=== PATIENT | female | born 1970 | race Asian ===

== ENCOUNTER 2022-02-02 11:57 | Day surgery (SDC) | payer MEDICAID ==
[~2022-02-02] VITALS: Ht 172.7 cm; Wt 68.5 kg
[2022-02-02] VITALS (14 sets, daily range): BP systolic 108–132; BP diastolic 44–91
[2022-02-02] MEDS ORDERED: METF-900 PO (14:40)
[2022-02-02] MEDS ORDERED: midazolam 1 mg/ML 2ml injection ONE (14:47)
[2022-02-02] MEDS ORDERED: fentaNYL/PF 50MCG/1 ML 2ML syringe ONE (14:47)
[2022-02-02] MEDS ORDERED: normal saline 1000ml 1,000 ML IV SCH (15:20)
[2022-02-02] MEDS ORDERED: HYDROcodone/acetaminophen 5mg/325mg tablet PO ONE (15:25)
--- NOTE | 2022-02-02 17:00 | NUR ---
Written and verbal DC instructions given to pt and mom, verbalize understanding. VSS.
--- NOTE | 2022-02-02 17:30 | NUR ---
Dr. Spaulding called to check in on pt. Updated him pt received pain medication, pain had changed from being localized to diffuse abdomen. Dr. Spaulding aware no orders received.
== END 2022-02-02 18:25 | disposition home or self-care (01) ==
LOC: SSTAY O 11:57
PROVIDERS: ATTEND Radiology Diagnostic Radiology
DX: K76.89 Other specified diseases of liver (principal); E11.9 Type 2 diabetes mellitus without complications; Z88.2 Allergy status to sulfonamides; Z79.899 Other long term (current) drug therapy; Z98.890 Other specified postprocedural states
CPT/HCPCS: 49405; 74150; 82948; 99152; 99153; C1729; J2250; J3010; J7030; Z7610; 10160; 36415; 76942; A4615

== ENCOUNTER 2022-02-07 15:23 | Emergency (ER) | payer MEDICAID ==
[~2022-02-07] VITALS: Ht 172.7 cm; Wt 67.7 kg
[~2022-02-07 15:23] MED LIST: METF-900 PO
[2022-02-07 15:58] LABS: BASOPHILS % (AUTO) 0.6 % (0-1); EOSINOPHILS # (AUTO) 0.1 X10'3 (0-0.9); EOSINOPHILS % (AUTO) 1.4 % (0-6); HEMATOCRIT 39.1 % (35.0-45.0); HEMOGLOBIN 13.3 g/dl (12.0-16.0); LYMPHOCYTES # (AUTO) 1.6 X10'3 (1.1-4.8); LYMPHOCYTES % (AUTO) 27.3 % (21-51); MEAN CORPUSCULAR HEMOGLOBIN 29.2 PG (27.0-31.0); MEAN CORPUSCULAR VOLUME 85.7 FL (78-98); MEAN PLATELET VOLUME 7.5 FL (7.4-10.4); MONOCYTES # (AUTO) 0.4 X10'3 (0-0.9); MONOCYTES % (AUTO) 7.3 % (2-12); NEUTROPHILS # (AUTO) 3.8 X10'3 (1.8-7.7); NEUTROPHILS % (AUTO) 63.4 % (42-75); PLATELET COUNT 371 X10'3 (140-440); RED BLOOD COUNT 4.56 X10'6 (4.20-5.60); RED CELL DISTRIBUTION WIDTH 12.9 % (11.5-14.5)
[2022-02-07 16:08] LABS: ALANINE AMINOTRANSFERASE 48 U/L (12-78); ALBUMIN 4.2 G/DL (3.4-5.0); ALBUMIN/GLOBULIN RATIO 1.1 (1.1-1.5); ALKALINE PHOSPHATASE 74 IU/L (46-116); ANION GAP 9 (8-16); ASPARTATE AMINO TRANSFERASE 25 U/L (10-37); BILIRUBIN,TOTAL 0.4 MG/DL (0.1-1.0); BLOOD UREA NITROGEN 9 MG/DL (7-18); BUN/CREATININE RATIO 11.7 (6.6-38.0); CHLORIDE 103 MMOL/L (99-107); CREATININE 0.77 MG/DL (0.40-0.90); GLUCOSE 105 MG/DL (70-104); LIPASE 118 U/L (73-393); SODIUM 141 MMOL/L (135-145); TOTAL CARBON DIOXIDE 28.8 MMOL/L (24-32); TOTAL PROTEIN 8.1 G/DL (6.4-8.2); eGFR 79 ML/MIN
--- NOTE | 2022-02-07 16:17 | NUR ---
Patient eating a donut while awaiting bed in [facility].
[2022-02-07] MEDS ORDERED: iohexol 300mg/ml 100ml inj. ONE (20:27)
[2022-02-07] MEDS ORDERED: ondansetron 4mg rapidly disintigrating tab PO ONE (20:30)
[2022-02-07 21:06] VITALS: BP 120/59
[2022-02-07] MEDS ORDERED: AMOX500C2 PO (21:21)
[2022-02-07] MEDS ORDERED: ONDA4TAB12 PO (22:00)
== END 2022-02-07 22:10 | disposition home or self-care (01) ==
LOC: ER 15:24
DX: G89.18 Other acute postprocedural pain (principal); Z88.2 Allergy status to sulfonamides
CPT/HCPCS: 36415; 74177; 80053; 83690; 85025; 93005; 99285; J3490; Q9967

== ENCOUNTER 2024-03-24 11:14 | Day surgery (SDC) | payer MEDICAID ==
[~2024-03-24] VITALS: Ht 172.7 cm; Wt 63.6 kg
[~2024-03-24 11:14] MED LIST changes: +ASCO-134 PO; +MAGN400C PO; +UBID10CA4 PO; +VITA-290 PO
[2024-03-24] MEDS ORDERED: METF-438 PO (11:31)
[2024-03-24] MEDS ORDERED: CYCL10TA25 PO (11:31)
[2024-03-24] MEDS ORDERED: FAMO20TA8 PO (11:31)
[2024-03-24] MEDS ORDERED: AZEL137S4 BOTHNARES (11:31)
[2024-03-24] MEDS ORDERED: FLUT16SP26 BOTHNARES (11:31)
[2024-03-24] MEDS ORDERED: DULO60CA65 PO (11:31)
[2024-03-24] MEDS ORDERED: TRAZ-251 PO (11:31)
[2024-03-24 11:40] VITALS: BP 137/60; PULSE 80; RESP 16
[2024-03-24] MEDS ORDERED: MIDAZolam 1 MG/ML 5ML VIAL ONE (11:42)
[2024-03-24] MEDS ORDERED: fentaNYL/PF 50MCG/1 ML 2ML syringe ONE (11:42)
[2024-03-24] MEDS ORDERED: simethicone 40mg/0.6ml oral drops 30ml ONE (11:45)
[2024-03-24] MEDS ORDERED: propofol inj 20 ML IV ONE (11:53)
[2024-03-24 12:10] VITALS: BP 112/73; PULSE 76; RESP 19; O2SAT 99
[2024-03-24 12:20] VITALS: BP 110/110; PULSE 72; RESP 18; O2SAT 100
[2024-03-24 12:30] VITALS: BP 115/74; PULSE 73; RESP 18; O2SAT 100
[2024-03-24 12:40] VITALS: BP 112/61; PULSE 75; RESP 18; O2SAT 98
== END 2024-03-24 12:50 | disposition home or self-care (01) ==
LOC: GI LAB 11:14
PROVIDERS: ATTEND Internal Medicine Gastroenterology
DX: Z12.11 Encounter for screening for malignant neoplasm of colon (principal); I10 Essential (primary) hypertension; E11.9 Type 2 diabetes mellitus without complications; J45.909 Unspecified asthma, uncomplicated
CPT/HCPCS: 45378; J2250; J2704; J3010; J7030; Z7512; A4620

== ENCOUNTER 2024-04-11 08:37 | Day surgery (SDC) | payer MEDICAID ==
[~2024-04-11] VITALS: Ht 172.7 cm; Wt 63.6 kg
[~2024-04-11 08:37] MED LIST changes: +AZEL137S4 BOTHNARES; +CYCL10TA25 PO; +DULO60CA65 PO; +FAMO20TA8 PO; +FLUT16SP26 BOTHNARES; +METF-438 PO; +TRAZ-251 PO
[2024-04-11 09:05] VITALS: BP 124/79; PULSE 73; RESP 15
[2024-04-11] MEDS ORDERED: simethicone 40mg/0.6ml oral drops 30ml ONE (09:54)
[2024-04-11 09:55] VITALS: BP 112/64; PULSE 78; RESP 17; O2SAT 98
[2024-04-11 10:05] VITALS: BP 119/70; PULSE 69; RESP 13; O2SAT 98
[2024-04-11 10:15] VITALS: BP 119/65; PULSE 66; RESP 11; O2SAT 98
[2024-04-11 10:25] VITALS: BP_SYST 117; BP_SYST 17; BP_DIAS 66; PULSE 72; RESP 17; O2SAT 97
== END 2024-04-11 10:34 | disposition home or self-care (01) ==
LOC: GI LAB 08:37
PROVIDERS: ATTEND Internal Medicine Gastroenterology
DX: Z12.11 Encounter for screening for malignant neoplasm of colon (principal); Z79.899 Other long term (current) drug therapy; Z88.2 Allergy status to sulfonamides
CPT/HCPCS: 45378; J7030; Z7512; A4618; A4620

== ENCOUNTER 2024-04-12 08:33 | Day surgery (SDC) | payer MEDICAID ==
[~2024-04-12] VITALS: Ht 172.7 cm; Wt 63.6 kg
[2024-04-12 08:58] VITALS: BP 120/57; PULSE 70; RESP 12
[2024-04-12] MEDS ORDERED: MIDAZolam 1 MG/ML 5ML VIAL ONE (09:57)
[2024-04-12] MEDS ORDERED: LIDOcaine 2% Viscous 15ml cup ONE (09:57)
[2024-04-12] MEDS ORDERED: fentaNYL/PF 50MCG/1 ML 2ML syringe ONE (09:57)
[2024-04-12] MEDS ORDERED: diphenhydrAMINE 50 mg/ml inj ONE (09:57)
[2024-04-12] MEDS ORDERED: simethicone 40mg/0.6ml oral drops 30ml ONE (10:07)
[2024-04-12 10:16] VITALS: BP 128/78; PULSE 71; RESP 13; O2SAT 99
[2024-04-12 10:26] VITALS: BP 129/82; PULSE 67; RESP 13; O2SAT 97
[2024-04-12 10:36] VITALS: BP 123/75; PULSE 62; RESP 14; O2SAT 97
[2024-04-12 10:45] VITALS: BP 121/80; PULSE 59; RESP 12; O2SAT 97
== END 2024-04-12 10:55 | disposition home or self-care (01) ==
LOC: GI LAB 08:33
PROVIDERS: ATTEND Internal Medicine Gastroenterology
DX: K30 Functional dyspepsia (principal); K29.70 Gastritis, unspecified, without bleeding
CPT/HCPCS: 43239; J1200; J2250; J3010; J7030; Z7512; 99152; A4620

== ENCOUNTER 2024-08-03 08:36 | Outpatient (CLI) | payer MEDICAID | END 2024-08-03 23:59 | disposition home or self-care (01) | LOC: US 08:36 | PROVIDERS: ATTEND Student in an Organized Health Care Education/Training Program | DX: K76.0 Fatty (change of) liver, not elsewhere classified (principal); K76.89 Other specified diseases of liver; K82.4 Cholesterolosis of gallbladder; R10.11 Right upper quadrant pain | CPT/HCPCS: 76700 ==

== ENCOUNTER → 2025-01-18 | Day surgery (SDC) | payer MEDICAID ==
[2025-01-15 10:28] LABS: BASOPHILS % (AUTO) 0.6 % (0-1); EOSINOPHILS # (AUTO) 0.1 X10'3 (0-0.9); EOSINOPHILS % (AUTO) 1.1 % (0-6); LYMPHOCYTES # (AUTO) 2.3 X10'3 (1.1-4.8); LYMPHOCYTES % (AUTO) 33.2 % (21-51); MEAN CORPUSCULAR HEMOGLOBIN 28.1 PG (27.0-31.0); MEAN CORPUSCULAR HGB CONC 32.9 g/dL (33.0-36.5); MEAN CORPUSCULAR VOLUME 85.3 FL (78-98); MEAN PLATELET VOLUME 7.7 FL (7.4-10.4); MONOCYTES # (AUTO) 0.5 X10'3 (0-0.9); MONOCYTES % (AUTO) 7.8 % (2-12); NEUTROPHILS # (AUTO) 3.9 X10'3 (1.8-7.7); NEUTROPHILS % (AUTO) 57.3 % (42-75); PRE OP HEMOGLOBIN 13.2 g/dL (12.0-16.0); PRE OP PLATELET COUNT 375 X10'3 (140-440); PRE OP WHITE BLOOD COUNT 6.9 10'3 (4.8-10.8); RED BLOOD COUNT 4.69 X10'6 (4.20-5.60); RED CELL DISTRIBUTION WIDTH 13.8 % (11.5-14.5)
--- NOTE | 2025-01-15 10:36 | ELECTROCARDIOGRAPH REPORT ---
[facility] Test Date: 2025-01-15 Test Time: 10:32:19 Pat Name: KRISTIAN ARNOLD Department: [facility]-PRE-OP Patient ID: [facility]-[id number] Room: Gender: F Rn Home Care: ALEXANDRO : 1970 Requested By: NANDINI RODRIGUEZ Order Number: [id number] Reading MD: Dr. Curt Reyes Measurements Intervals [place] Rate: 67 P: 69 HI: 151 QRS: 81 QRSD: 85 T: 80 QT: 377 QTc: 398 Interpretive Statements Sinus rhythm RSR' in V1 or V2, probably normal variant Electronically Signed On 01-16-2025 6:53:[address] Curt Reyes Please click the below link to view image of tracing.
[2025-01-15 10:56] LABS: ALBUMIN 4.5 G/DL (3.4-5.0); ALBUMIN/GLOBULIN RATIO 1.3 (1.1-1.5); ALKALINE PHOSPHATASE 83 IU/L (46-116); BLOOD UREA NITROGEN 13 MG/DL (7-18); BUN/CREATININE RATIO 15.7 (10.0-20.0); CALCIUM 9.5 MG/DL (8.5-10.1); CHLORIDE 101 MMOL/L (99-107); CREATININE 0.83 MG/DL (0.40-0.90); PRE OP ALT 27 U/L (30-65); PRE OP AST 17 U/L (10-37); PRE OP BILIRUB, TOTAL 0.7 MG/DL (0.0-1.0); PRE OP GLUCOSE 93 MG/DL (70-104); PRE OP POTASSIUM 3.5 MMOL/L (3.4-5.1); TOTAL CARBON DIOXIDE 33.2 MMOL/L (24-32); TOTAL PROTEIN 7.9 G/DL (6.4-8.2); eGFR 72 ML/MIN
[2025-01-15 11:14] LABS: PRE OP ANION GAP 8 (8-16); PRE OP SODIUM 142 MMOL/L (135-145)
[~2025-01-18] VITALS: Ht 172.7 cm; Wt 63.5 kg
[2025-01-18] VITALS (15 sets, daily range): BP systolic 112–138; BP diastolic 69–89; PULSE 68–92; RESP 14–20; TEMP 97.9; O2SAT 95–100
[~2025-01-18] MED LIST changes: -ASCO-134 PO; +ASCO100031 PO; +ATOR40TA72; -AZEL137S4 BOTHNARES; +BUPIVAcaine 2.5mg/ml inj 50ml vial (contains preservative) ONE; -CYCL10TA25 PO; -FAMO20TA8 PO; -FLUT16SP26 BOTHNARES; +L.AC1CAP6 PO; +LIDOcaine 1% 30ml preserv. free vial ONE; -MAGN400C PO; +MAGN400T29 PO; -METF-900 PO; +OMEP40CA21 PO; -TRAZ-251 PO; +VITA1TAB97 PO; +acetaminophen 1,000mg/100ml IV 0 ML IV ONE; +acetaminophen 1,000mg/100ml IV 100 ML IV ONE; +diphenhydrAMINE 50 mg/ml inj IV PRN; +diphenhydrAMINE 50 mg/ml inj ONE; +fentaNYL/PF 50MCG/1 ML 2ML syringe IV PRN; +fentaNYL/PF 50MCG/1 ML 2ML syringe ONE; +glycopyrrolate 0.2mg/ml inj ONE; +labetalol 20mg/4ml (5mg/ml) syringe IV PRN; +midazolam 1 mg/ML 2ml injection ONE; +morphine 2 MG/ML inj. syringe IV PRN; +neostigmine methylsulfate 1 MG/ML 10ml vial ONE; +ondansetron/PF 4mg/2ml inj IV PRN; +ondansetron/PF 4mg/2ml inj ONE; +oxyCODONE/APAP 5-325mg tablet PO PRN; +propofol inj 20 ML IV ONE; +ringers solution, lacted 1,000 ML IV SCH; +rocuronium 10mg/ml inj IV ONE; +sevoflurane 250ml liquid IH ONE
[2025-01-18] MEDS: ceFAZolin 2gm/dext,iso 50mL 50 ML IV ONE (05:30)
[2025-01-18] MEDS: famotidine 20mg tablet PO ONE (11:39)
[2025-01-18] MEDS: INDOCYANINE GREEN 25 MG/10 ML VIAL IV ONE (11:40)
[2025-01-18] MEDS: ringers solution, lacted 1,000 ML IV SCH (11:41)
[2025-01-18] MEDS: BUPIVAcaine/PF 2.5 mg/ml (0.25%) 30ml vial IJ ONE (12:56)
--- NOTE | 2025-01-18 13:38 | OPERATIVE REPORT ---
Operative Report Providers to CC CC: MARKO RODRIGUEZ MD ~ Date of Procedure: Jan 18, 2025 Pre-Operative Diagnosis: Biliary colic, gallbladder polyps Post-Operative Diagnosis SAME as PRE-Op Procedure Performed Robotic assisted, laparoscopic cholecystectomy Surgeon: Marko Rodriguez MD FACS Safety And Health Consultant None Anesthesiologist: Milan Lomeli Type of Anesthesia: General Findings: No significant cystic disease of the liver visible, amenable to biopsy Clear visualization of the cystic duct, common bile duct and cystic artery with critical view of safety identified and confirmed using fluorescent cholangiography Wound class II Complications None Prosthetics\Implants used: None Estimated Blood Loss: Minimal Specimen Removed: Gallbladder Description of Procedure: Patient was brought to the operating room and identified by the nursing staff and the attending physician. Patient was placed supine and general anesthesia was induced. A supraumbilical, midline incision was made, long enough to accommodate a 12 mm Cheema port. Cheema technique was used to gain entry into the abdomen. Stay sutures were placed in the Cheema port anchored to the fascia. Abdomen was insufflated without incident. Laparoscope was inserted and the abdomen surveyed. Secondary, 8.5 mm robotic trochars were placed in the l eft upper quadrant and right lateral abdomen. Robotic arm was docked to the patient. Robotic instruments were guided intra-abdominally under laparoscopic visualization. The anterior aspects of the right and left lobes of the liver were examined. There were no significant hepatic cysts visible. Left lobe of the liver was lifted and did not see an obvious hepatic cysts they are either. Gallbladder was readily identified. Some adhesions between the transverse mesocolon in the gallbladder were taken down freeing up the fundus. Fundus of the gallbladder was grasped and retracted over the dome of the liver. Infundibulum was retracted towards the right lower quadrant. Firefly technology was used to obtain a fluorescent cholangiogram and visualize the pertinent anatomy. Cystic duct was clearly visualized. Peritoneum overlying the triangle was incised with hook electrocautery. This allowed for circumferential dissection of the cystic duct and artery. Critical view of safety was obtained. Duct and artery were then clipped with hemo-lock clips and both structures divided. Gallbladder was retracted laterally and dissected out of the gallbladder fossa. Gallbladder was set aside and fluorescent cholangiogram of the gallbladder fossa was used to confirm no evidence of bile leak. Gallbladder was placed in a laparoscopic retrieval bag. Secondary trochars were removed and the abdomen allowed to deflate. Cheema port was removed with the specimen in its retrieval bag. Fascia at the umbilical port site was closed with 0 Vicryl sutures. Skin was closed with 4-0 Monocryl sutures in a subcuticular fashion. About 40 cc of local anesthetic was used during the case. Sterile dressings were applied. Patient was awakened and taken to the [facility] care unit in stable condition. Counts repoted as correct: Yes MARKO RODRIGUEZ MD Jan 18, 2025 13:38
[2025-01-18] MEDS: morphine 4 MG/ML inj SYRINge IV PRN (14:04)
--- NOTE | 2025-01-19 19:06 | PATHOLOGY REPORT ---
[facility] [address] [place] [address] SURGICAL PATHOLOGY REPORT CaseNumber: [id number] Surgeon:Marko Hernadez M.D. CLINICAL INFORMATION CLINICAL INFORMATION: Not provided. DIAGNOSIS DIAGNOSIS: GALLBLADDER; ROBOTIC-ASSISTED LAPARAOSCOPIC CHOL - MILD CHRONIC CHOLECYSTITIS. - POLYPOID CHOLESTEROLOSIS. MICROSCOPIC DESCRIPTION MICROSCOPIC DESCRIPTION: A single slide of the submitted gallbladder is reviewed. Present is mild chr onic cholecystitis. The lining gallbladder mucosa is intact without dysplastic features. It inva ginates into the underlying muscularis propria. The gallbladder wall is thickened due to an increased content of fibrous tissue. There are scattered lymphocytes throughout. There are no features of yuriy gnancy. Additionall present, is a benign mucosal papilloma. The polypoid structure centrally contains a few thin-walled vessels and numerous foamy macrophages. The epithelium is heaped up into a frond/leaf-lik e configuration. 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 (st) GROSS DESCRIPTION GROSS DESCRIPTION: Received in a container of formalin labeled with the patient's name, number, and " gallbladder" is an intact gallbladder which measures 7.5 cm long by 2.5 cm in diameter. The serosa is smooth and purple-singh. The surgical bed is unremarkable. Sectioning reveals a moderate amount of vis cous dark green bile but no stones. The specimen container is strained and no stones are found. The mucosa is red and granular. A discrete mass lesion is not identified. The wall of the gallbladder m easures up to 0.4 cm thick. Baseball Winder sections of the neck and wall of the gallbladder are submi tted as A1.The time at which the specimen was removed was 1310. The time at which the specimen was pl aced in formalin was 1312. (meb) Electronically signed by: Wendy Driscoll M.D. 01/19/2025 6:35:00 PM
== END | disposition home or self-care (01) ==
LOC: PAS 10:40
PROVIDERS: ATTEND Surgery
DX: K80.44 Calculus of bile duct with chronic cholecystitis without obstruction (principal); E11.9 Type 2 diabetes mellitus without complications; I10 Essential (primary) hypertension; G43.909 Migraine, unspecified, not intractable, without status migrainosus; Z98.890 Other specified postprocedural states; E78.5 Hyperlipidemia, unspecified; Z88.2 Allergy status to sulfonamides; Z91.013 Allergy to seafood; Z79.899 Other long term (current) drug therapy
CPT/HCPCS: 36415; 47563; 80053; 82948; 85025; 93005; J0131; J1100; J2003; J2250; J2270; J2405; J2704; J2710; J3010; J3490; J7030; J7120; S2900; Z7506; Z7508; Z7512; A4215; A4618; A7000

== ENCOUNTER 2025-06-27 14:07 | Outpatient (CLI) | payer MEDICAID ==
[~2025-06-27 14:07] MED LIST changes: -ASCO100031 PO; +ASCO10004 PO; -BUPIVAcaine 2.5mg/ml inj 50ml vial (contains preservative) ONE; -LIDOcaine 1% 30ml preserv. free vial ONE; -acetaminophen 1,000mg/100ml IV 0 ML IV ONE; -acetaminophen 1,000mg/100ml IV 100 ML IV ONE; -diphenhydrAMINE 50 mg/ml inj IV PRN; -diphenhydrAMINE 50 mg/ml inj ONE; -fentaNYL/PF 50MCG/1 ML 2ML syringe IV PRN; -fentaNYL/PF 50MCG/1 ML 2ML syringe ONE; -glycopyrrolate 0.2mg/ml inj ONE; -labetalol 20mg/4ml (5mg/ml) syringe IV PRN; -midazolam 1 mg/ML 2ml injection ONE; -morphine 2 MG/ML inj. syringe IV PRN; -neostigmine methylsulfate 1 MG/ML 10ml vial ONE; -ondansetron/PF 4mg/2ml inj IV PRN; -ondansetron/PF 4mg/2ml inj ONE; -oxyCODONE/APAP 5-325mg tablet PO PRN; -propofol inj 20 ML IV ONE; -ringers solution, lacted 1,000 ML IV SCH; -rocuronium 10mg/ml inj IV ONE; -sevoflurane 250ml liquid IH ONE
--- NOTE | 2025-06-27 14:31 | RADIOLOGY REPORT ---
EXAM: MR MRI C SPINE CLINICAL HISTORY: PAIN IN LEFT SHOULDER COMPARISON: None Technique: MRI of the cervical spine was performed without contrast. Findings: Vertebral body height is preserved. Mild retrolisthesis of C4 and C5 with reversal of cervical lordosis. Vertebral marrow signal is essentially normal. No spinal cord edema. C2-3: No significant spinal canal or foraminal stenosis. C3-4: No significant spinal canal or foraminal stenosis. C4-5: No significant spinal canal or foraminal stenosis. C5-6: No significant spinal canal or foraminal stenosis. C6-7: No significant spinal canal or foraminal stenosis. C7-T1: No significant spinal canal or foraminal stenosis. Small bilateral perineural cysts in the lower cervical/upper thoracic spine. IMPRESSION: Mild retrolisthesis of C4 and C5 with reversal of cervical lordosis. No significant spinal canal or foraminal stenosis.
== END 2025-06-27 23:59 | disposition home or self-care (01) ==
LOC: MRI02 14:07
PROVIDERS: ATTEND Family Medicine Sports Medicine
DX: S46.012A Strain of muscle(s) and tendon(s) of the rotator cuff of left shoulder, initial encounter (principal); M47.812 Spondylosis without myelopathy or radiculopathy, cervical region; M25.512 Pain in left shoulder; M77.9 Enthesopathy, unspecified; X58.XXXA Exposure to other specified factors, initial encounter; Y93.89 Activity, other specified; Y92.89 Other specified places as the place of occurrence of the external cause; Y99.8 Other external cause status
CPT/HCPCS: 72141